=== PATIENT | male | born 1970 | race Caucasian/White ===

== ENCOUNTER 2019-03-15 16:59 | Emergency (ER) | payer SELFPAY ==
[~2019-03-15] VITALS: Ht 167.6 cm; Wt 77.0 kg
[2019-03-15] MEDS ORDERED: ACETAMINOPHEN 325MG TABLET PO STA (17:23)
[2019-03-15] MEDS ORDERED: KETOROLAC 30MG/ML VIAL IV STA (17:23)
[2019-03-15] MEDS ORDERED: SODIUM CHLORIDE 0.9% 1,000 ML IV ONE (17:23)
[2019-03-15 17:58] LABS: HEMATOCRIT. 46.3 % (42.0-52.0); HEMOGLOBIN. 16.2 g/dL (14.0-18.0); MEAN CORPUSCULAR HEMOGLOBIN 31.2 pg (28.0-32.0); MEAN CORPUSCULAR VOLUME 88.9 fL (80.0-94.0); PLATELET 218 x1000/uL (130-400); RED CELL DISTRIBUTION WIDTH 12.8 % (11.6-14.6)
[2019-03-15 17:59] LABS: CHLORIDE 107 mEq/L (98-107)
[2019-03-15 18:06] LABS: CLARITY URINE CLEAR (CLEAR); COLOR URINE YELLOW (YELLOW); KETONES URINE TRACE (NEGATIVE); LEUKOCYTE ESTERASE URINE NEGATIVE (NEGATIVE); NITRITE URINE NEGATIVE (NEGATIVE); OCCULT BLOOD URINE NEGATIVE (NEGATIVE); PROTEIN URINE NEGATIVE (NEGATIVE); SPECIFIC GRAVITY URINE 1.017 (1.005-1.030); UROBILINOGEN URINE 0.2 E.U./dL (0.2-1.0)
[2019-03-15 18:38] LABS: PLATELET ESTIMATE NORMAL
[2019-03-15 19:31] VITALS: BP 110/75
== END 2019-03-15 19:34 | disposition home or self-care (01) ==
LOC: ER 16:59
DX: B34.9 Viral infection, unspecified (principal); Z98.890 Other specified postprocedural states
CPT/HCPCS: 36415; 71045; 80053; 81003; 85025; 87804; 96374; 99284; J1885; J7030

== ENCOUNTER 2019-04-01 06:08 | Emergency (ER) | payer MEDICAID ==
[~2019-04-01] VITALS: Ht 170.2 cm; Wt 88.0 kg
[2019-04-01] MEDS ORDERED: BACITRACIN ZINC OINT UDPKT TOP ONE (06:45)
[2019-04-01 06:55] VITALS: BP 135/69
== END 2019-04-01 06:56 | disposition home or self-care (01) ==
LOC: ER 06:08
DX: S81.011D Laceration without foreign body, right knee, subsequent encounter (principal); X58.XXXD Exposure to other specified factors, subsequent encounter
CPT/HCPCS: 99283; A4217